=== PATIENT | female | born 1960 | race Caucasian/White ===

== ENCOUNTER 2019-04-11 16:40 | Observation (INO) | payer OTHER ==
[~2019-04-11] VITALS: Ht 170.2 cm; Wt 63.5 kg
[2019-04-11] MEDS ORDERED: DIPHENHYDRAMINE HCL INJ 50 MG/ML VIAL IV ONE (17:00)
[2019-04-11 17:38] LABS: BASOPHILS # (AUTO) 0.1 (0.0-0.1); BASOPHILS % 0.8 % (0.0-1.0); EOSINOPHILS # (AUTO) 0.3 (0.0-0.4); EOSINOPHILS % 3.9 % (0.0-6.0); HEMATOCRIT 29.3 % (34.2-44.1); HEMOGLOBIN 9.2 g/dL (12.0-16.0); LYMPHOCYTES # (AUTO) 1.5 (1.0-3.2); LYMPHOCYTES % 17.1 % (18.0-39.1); MEAN CORPUSCULAR HEMOGLOBIN 25.7 pg (28-32); MEAN CORPUSCULAR HGB CONC 31.4 g/dL (31-35); MEAN CORPUSCULAR VOLUME 81.8 fL (81-99); MONOCYTES # (AUTO) 0.9 (0.2-0.8); MONOCYTES % 10.5 % (4.4-11.3); NEUTROPHILS # (AUTO) 5.7 (2.1-6.9); NEUTROPHILS % 67.3 % (38.7-80.0); PLATELET COUNT 377 x10e3/uL (140-360); RED BLOOD COUNT 3.58 x10e6/uL (3.6-5.1); RED CELL DISTRIBUTION WIDTH 15.1 % (11.7-14.4)
--- NOTE | 2019-04-11 17:39 | Diagnostic Imaging Report ---
History:Dizziness Comparison studies: None Technique: Axial images were obtained from the skull base to the vertex. Coronal and sagittal images reconstructed from the axial data. Dose modulation, iterative reconstruction, and/or weight based adjustment of the mA/kV was utilized to reduce the radiation dose to as low as reasonably achievable. Intravenous contrast: None Findings: Scalp/skull: No abnormalities. Extra-axial spaces: No masses. No fluid collections. Brain sulci: Mildly prominent. Ventricles: Mild compensatory dilatation. No hydrocephalus. Parenchyma: Describe hypodensities in the supratentorial white matter are small vessel ischemic changes. No masses, hemorrhage, acute or chronic cortical vascular insults. Sellar/suprasellar region: No abnormalities. Craniocervical junction: Patent foramen magnum. No Chiari one malformation. Incidental findings: Subtle atherosclerotic calcifications in the carotid siphons . Impression: No intracranial abnormalities. Signed by: Dr. Aubrey Strong M.D. on 04/11/2019 5:36 PM
[2019-04-11 17:52] LABS: ALANINE AMINOTRANSFERASE 17 IU/L (0-55); ALBUMIN 3.6 g/dL (3.5-5.0); ALBUMIN/GLOBULIN RATIO 1.1 (0.8-2.0); ALKALINE PHOSPHATASE 93 IU/L (40-150); ANION GAP 17.5 mmol/L (8-16); BLOOD UREA NITROGEN 19 mg/dL (7-26); BUN/CREATININE RATIO 12 (6-25); CARBON DIOXIDE 21 mmol/L (22-29); CHLORIDE 105 mmol/L (98-107); CREATINE KINASE 766 IU/L (29-168); CREATININE, SERUM 1.63 mg/dL (0.57-1.11); EST GLOMERULAR FILTRATION RATE 32 ML/MIN (60-); GLUCOSE 99 mg/dL (74-118); POTASSIUM 3.5 mmol/L (3.5-5.1); SODIUM 140 mmol/L (136-145)
[2019-04-11 17:53] LABS: BILIRUBIN,URINE NEGATIVE (NEGATIVE); CLARITY,URINE SL CLOUDY (CLEAR); COLOR,URINE YELLOW (YELLOW); KETONES,URINE TRACE (NEGATIVE); LEUKOCYTE ESTERASE ,URINE NEGATIVE (NEGATIVE); NITRITE,URINE NEGATIVE (NEGATIVE); PROTEIN,URINE DIPSTICK NEGATIVE (NEGATIVE); URINE UROBILINOGEN 0.2 mg/dL (0.2 - 1)
[2019-04-11 18:12] LABS: THYROID STIMULATING HORMONE 0.277 uIU/mL (0.350-4.940)
[2019-04-11 18:26] LABS: AMPHETAMINES SCREEN,URINE POSITIVE (NEGATIVE); PHENCYCLIDINE SCREEN,URINE NEGATIVE (NEGATIVE)
[2019-04-11 18:28] LABS: BENZODIAZEPINES SCREEN,URINE POSITIVE (NEGATIVE)
[2019-04-11] MEDS ORDERED: SODIUM CHLORIDE 0.9% 1000ML 1,000 ML ONE ×3 (18:46→19:10)
[2019-04-11] MEDS ORDERED: ZIPRASIDONE 20 MG VIAL IM STA (19:02)
[2019-04-11 19:09] LABS: BACTERIA,URINE MODERATE /HPF; EPITHELIAL CELLS,URINE MODERATE /LPF; RBC,URINE 0-5 /HPF (0-5); WBC,URINE (MAN) 0-5 /HPF (0-5)
[2019-04-11] MEDS ORDERED: SODIUM CHLORIDE 0.9% 1000ML 1,000 ML IV SCH (19:15)
[2019-04-11] MEDS ORDERED: SODIUM CHLORIDE 0.9% 1000ML 3,000 ML IV SCH (19:15)
[2019-04-11] MEDS ORDERED: MULTIVITAMINS- 12 INJECTION 10 ML, FOLIC ACID MDV 5 MG, THIAMINE HCL INJ 100 MG in SODI... IV ONE (20:00)
[2019-04-11] MEDS ORDERED: ONDANSETRON HCL INJ 2MG/ML 2ML 2 MG/ML VIAL IV PRN (20:00)
[2019-04-11] MEDS ORDERED: HALOPERIDOL LACTATE 5 MG/ML VIAL IM PRN (20:00)
--- OUTSIDE RECORDS SUMMARY | 2019-04-11 20:01 | XMS REPORT ---
Author Organization Unknown Address [address] [place] [address] Phone [phone] Care Team Providers Care Household Chores Name Role Phone LONNIE HARDY MD 447 [phone] LOS ARANA MD 005 [phone] Allergies Code Code System Name Reaction Severity Status Onset NKDA Medications Name Status Start Date Stop Date acetaminophen 300 mg-codeine 30 mg tablet Completed 05/02/2017 Advair Diskus 500 mcg-50 mcg/dose powder for inhalation Active Not available amlodipine 10 mg tablet Active Not available aspirin 1 tab po qd with food Active Not available atorvastatin 10 mg tablet TAKE 1 TABLET(S) EVERY DAY BY ORAL ROUTE FOR 90 DAYS. Active Not available azithromycin 250 mg tablet Completed 01/07/2018 bupropion HCl SR 150 mg tablet,12 hr sustained-release TAKE 1 TABLET BY MOUTH TWICE A DAY Completed 01/07/2018 clonazepam 0.5 mg tablet Completed 05/02/2017 clonidine 0.1 mg/24 hr weekly transdermal patch Completed 08/06/2017 clonidine HCl 0.1 mg tablet Active Not available Combivent Respimat 20 mcg-100 mcg/actuation solution for inhalation Active Not available diclofenac 3 % topical gel Active Not available duloxetine 30 mg capsule,delayed release Active Not available fluconazole 150 mg tablet Completed 09/17/2017 lidocaine 5 % topical ointment Active Not available lisinopril 10 mg tablet Active Not available meloxicam 15 mg tablet Active Not available metformin 500 mg tablet Active Not available methylprednisolone 4 mg tablets in a dose pack Active Not available NTS Step 1 21 mg/24 hr transdermal 24 hour patch Completed 08/06/2017 omeprazole 20 mg capsule,delayed release Active Not available OneTouch Ultra Blue Test Strip Active Not available OneTouch Ultra2 kit Active Not available penicillin V potassium 500 mg tablet Completed 05/02/2017 Prescription - Prior Authorization Request Completed 05/26/2017 Symbicort 160 mcg-4.5 mcg/actuation HFA aerosol inhaler inhale 2 puff(s) twice a day by inhalation route. Completed 05/26/2017 Vitamin D2 50,000 unit capsule Completed 12/24/2017 Problems Name Status Onset Date Source Tobacco Dependence Syndrome Active 02/07/2017 History of Cocaine Abuse Active 02/07/2017 Generalized Anxiety Disorder Active 03/05/2017 Chronic Obstructive Lung Disease Active 05/02/2017 Major Depressive Disorder Active 09/17/2017 Drug Abuse in Remission Active 09/17/2017 Hyperlipidemia Active 12/24/2017 Benign Essential Hypertension Active 12/24/2017 Type 2 Diabetes Mellitus with Multiple Complications Active 01/07/2018 Procedures Date Name Performed by 10/06/1989 Caesarean Section Information not available Delivery Information not available Back Surgery Information not available 01/24/2017 XR, Hip, Unilateral [facility] [address] [place] [id number] (Work Place) 01/24/2017 XR, Femur [facility] [address] [place] [phone] (Work Place) 01/24/2017 XR, Wrist, 2 View [facility] [address] [place] [phone] (Work Place) 01/24/2017 XR, Hand [facility] [address] [place] [address] (Work Place) 06/19/2017 Electrocardiogram [facility] [address] [place] [phone] (Work Place) 04/09/2017 Mammogram, Screening Information not available 09/17/2017 US, Duplex, Abdomen, Complete Information not available 12/24/2017 Electrocardiogram [facility] [address] [place] [address] [phone] (Work Place) 12/24/2017 XR, Chest, 2 View [facility] [address] [place] [phone] (Work Place) 01/13/2018 US, Abdomen [facility] [address] [place] [phone] (Work Place) Lab Results Date Name Specimen Result Interpretation Description Value Range Status Address 01/13/2018 Urinalysis, Dipstick Color Color yellow [facility]: [address], [place] Color Appearance clear [facility]: [address] [place] [address], [place] Color Glucose negative [facility]: [address] [place] [address], [place] Color Bilirubin negative [facility]: [address] [place] [address], [place] Color Ketones negative [facility]: [address] [place] [address], [place] Color Specific [place] 1.010 [facility]: [address] [place] [address], [place] Color Blood negative [facility]: [address] [place] [address], [place] Color PH 5.5 [facility]: [address] [place] [address], [place] Color Protein negative [facility]: [address] [place] [address], [place] Color Urobilinogen 0.2 [facility]: [address] [place] [address], [place] Color Nitrites negative [facility]: [address] [place] [address], [place] Color Leukocytes negative [facility]: [address] 01/05/2018 Electrocardiogram Rate & Rhythm 97/min , rrr [facility]: [address] Qrs [facility]: [address] [place] [address], [place] CT Interval [facility]: [address] [place] [address], [place] QRS Duration [facility]: [address] QT Interval [facility]: [address] 12/24/2017 CBC W/ Auto Diff Wbc 8.72 x10*3/L 3.98-10.04 x10*3/L Final [facility]: [address] Rbc 4.97 10*12/L 3.93-5.22 10*12/L Final [facility]: [address] Hemoglobin 15.20 g/dL 11.20-15.70 g/dL Final [facility]: [address] Hematocrit 44.4 % 34.1-44.9 % Final [facility]: [address] Mcv 89.3 fL 80.0-100.0 fL Final [facility]: [address] [place] Mch 30.6 pg 25.6-32.2 pg Final [facility]: [address] [place] Mchc 34.2 g/dL 32.2-35.5 g/dL Final [facility]: [address] [place] RDW-SD 40.9 fL 36.4-46.3 fL Final [facility]: [address] [place] Platelet Count 271.0 k/uL 182.0-369.0 k/uL Final [facility]: [address] [place] Mpv 10.5 fL 7.5-11.5 fL Final [facility]: [address] [place] Neut% 68.2 % 34.0-71.1 % Final [facility]: [address] [place] Lymph% 21.8 % 19.3-51.7 % Final [facility]: [address] [place] Mon% 6.7 % 4.7-12.5 % Final [facility]: [address] [place] Eos% 2.5 % 0.7-5.8 % Final [facility]: [address] [place] Baso% 0.8 % 0.1-1.2 % Final [facility]: [address] [place] Neut# 6.0 x10*3/L 1.6-6.1 x10*3/L Final [facility]: [address] [place] Lymph# 1.9 x10*3/L 1.2-3.7 x10*3/L Final [facility]: [address] [place] Mon# 0.6 x10*3/L 0.2-0.9 x10*3/L Final [facility]: [address] [place] Eos# 0.22 x10*3/L 0.04-0.36 x10*3/L Final [facility]: [address] [place] Baso# 0.07 x10*3/L 0.01-0.08 x10*3/L Final [facility]: [address] [place] 12/24/2017 CMP, Serum or Plasma Alt 12 U/L 0-55 U/L Final [facility]: [address] Ast 16 U/L 5-34 U/L Final [facility]: [address] Nazario [address] [place] [address] Bun 17.9 mg/dL 9.8-20.1 mg/dL Final [facility]: [address] [place] [address], [place] Alk Phos 122 unit/L 40-150 unit/L Final [facility]: [address] Nazario [address] [place] [address] High Glucose 128 mg/dL 70-99 mg/dL Final [facility]: [address] Albumin 3.7 g/dL 3.5-5.0 g/dL Final [facility]: [address] Creatinine 0.77 mg/dL 0.57-1.11 mg/dL Final [facility]: [address] eGFR Non- >60 mL/min/1.73m2 >60 mL/min/1.73m2 Final [facility]: [address] Total Bilirubin 0.3 mg/dL 0.2-1.2 mg/dL Final [facility]: [address] eGFR - >60 mL/min/1.73m2 >60 mL/min/1.73m2 Final [facility]: [address] Sodium 137 mEq/L 136-145 mEq/L Final [facility]: [address] Potassium 4.6 mEq/L 3.5-5.1 mEq/L Final [facility]: [address] Chloride 103 mmol/L 98-107 mmol/L Final [facility]: [address] Total Protein 7.4 g/dL 6.4-8.3 g/dL Final [facility]: [address] Calcium 9.7 mg/dL 8.4-10.2 mg/dL Final [facility]: [address] Co2 25.2 mmol/L 22.0-29.0 mmol/L Final [facility]: [address] Anion Gap 9 calc Final [facility]: [address] 12/24/2017 Lipid Panel, Serum Hdl 55 mg/dL 40-60 mg/dL Final [facility]: [address] Triglyceride 116 mg/dL 0-149 mg/dL Final [facility]: [address] VLDL Calc. 23 mg/dL Final [facility]: [address] cholesterol/HDL Ratio 4.5 mg/dL Final [facility]: [address] High non-HDL Cholesterol Calc. 192 mg/dL 0-160 mg/dL Final [facility]: [address] High Cholesterol 247 mg/dL 0-199 mg/dL Final [facility]: [address] High LDL Calc. 169 mg/dL 0-130 mg/dL Final [facility]: [address] 12/24/2017 Vitamin D, 25-Hydroxy, Total, Serum Vitamin D 25OH 31.0 NG/mL 30.0-96.0 NG/mL Final [facility]: [address] 12/24/2017 HbA1C (Hemoglobin a1C), Blood High A1C W/eag 6.9 % 1.0-5.7 % Final [facility]: [address] Average Blood Glucose 151 mg/dL Final [facility]: [address] 12/24/2017 Spirometry Spirometry: PRE [facility]: [address] Fev1: 80% [facility]: [address] 10/22/2017 Fecal Occult Blood, Stool Fecal Globin (Medicare) by Immunochemistry not detected Final [facility]: [address] 05/26/2017 CBC W/ Auto Diff Wbc 7.99 x10*3/L 3.98-10.04 x10*3/L Final [facility]: [address] [place] Rbc 4.72 10*12/L 3.93-5.22 10*12/L Final [facility]: [address] [place] Hemoglobin 14.80 g/dL 11.20-15.70 g/dL Final [facility]: [address] [place] Hematocrit 44.6 % 34.1-44.9 % Final [facility]: [address] [place] Mcv 94.5 fL 80.0-100.0 fL Final [facility]: [address] [place] Mch 31.4 pg 25.6-32.2 pg Final [facility]: [address] [place] Mchc 33.2 g/dL 32.2-35.5 g/dL Final [facility]: [address] [place] RDW-SD 43.0 fL 36.4-46.3 fL Final [facility] [address] [facility] 288.0 k/uL 182.0-369.0 k/uL Final [facility]: [address] Gu[address] [place] Mpv 10.8 fL 7.5-11.5 fL Final [facility]: [address] [place] Neut% 50.8 % 34.0-71.1 % Final [facility]: [address] [place] Lymph% 35.7 % 19.3-51.7 % Final [facility]: [address] [place] Mon% 9.0 % 4.7-12.5 % Final [facility]: [address] [place] Eos% 3.9 % 0.7-5.8 % Final [facility]: [address] [place] Baso% 0.6 % 0.1-1.2 % Final [facility]: [address] [place] Neut# 4.1 x10*3/L 1.6-6.1 x10*3/L Final [facility]: [address] [place] Lymph# 2.9 x10*3/L 1.2-3.7 x10*3/L Final [facility]: [address] Nazario [facility], [place] Mon# 0.7 x10*3/L 0.2-0.9 x10*3/L Final [facility]: [address] [place] Eos# 0.31 x10*3/L 0.04-0.36 x10*3/L Final [facility]: [address] Nazario [facility], [place] Baso# 0.05 x10*3/L 0.01-0.08 x10*3/L Final [facility]: [address] Nazario [address] [place] [address] 05/26/2017 CMP, Serum or Plasma Alt 6 U/L 0-55 U/L Final [facility]: [address] Ast 10 U/L 5-34 U/L Final [facility]: [address] High Bun 25.2 mg/dL 9.8-20.1 mg/dL Final [facility]: [address] Alk Phos 118 unit/L 40-150 unit/L Final [facility]: [address] High Glucose 103 mg/dL 70-99 mg/dL Final [facility]: [address] Low Albumin 3.4 g/dL 3.5-5.0 g/dL Final [facility]: [address] Creatinine 0.79 mg/dL 0.57-1.11 mg/dL Final [facility]: [address] eGFR Non- >60 mL/min/1.73m2 >60 mL/min/1.73m2 Final [facility]: [address] Total Bilirubin 0.2 mg/dL 0.2-1.2 mg/dL Final [facility]: [address] eGFR - >60 mL/min/1.73m2 >60 mL/min/1.73m2 Final [facility]: [address] Sodium 138 mEq/L 136-145 mEq/L Final [facility]: [address] Potassium 4.5 mEq/L 3.5-5.1 mEq/L Final [facility]: [address] Chloride 107 mmol/L 98-107 mmol/L Final [facility]: [address] Total Protein 6.6 g/dL 6.4-8.3 g/dL Final [facility]: [address] Calcium 9.1 mg/dL 8.4-10.2 mg/dL Final [facility]: [address] Co2 22.2 mmol/L 22.0-29.0 mmol/L Final [facility]: [address] Anion Gap 9 calc Final [facility]: [address] 05/26/2017 Lipid Panel, Serum Hdl 46 mg/dL 40-60 mg/dL Final [facility]: [address] High Triglyceride 152 mg/dL 0-149 mg/dL Final [facility]: [address] VLDL Calc. 30 mg/dL Final [facility]: [address] cholesterol/HDL Ratio 6 mg/dL Final [facility]: [address] High non-HDL Cholesterol Calc. 212 mg/dL 0-160 mg/dL Final [facility]: [address] High Cholesterol 258 mg/dL 0-199 mg/dL Final [facility]: [address] High LDL Calc. 182 mg/dL 0-130 mg/dL Final [facility]: [address] [place] [address], [place] 05/26/2017 T3, Free, Serum or Plasma T3 Free 2.39 pg/mL 1.71-3.71 pg/mL Final [facility]: [address] [place] [address], [place] 05/26/2017 T4, Free, Serum T4 Free 0.97 NG/dL 0.70-1.48 NG/dL Final [facility]: [address] 05/26/2017 TSH, Serum or Plasma Tsh 1.618 uIU/mL 0.350-4.940 uIU/mL Final [facility]: [address] [place] [address], [place] 05/26/2017 Vitamin D, 25-Hydroxy, Total, Serum Low Vitamin D 25OH 25.9 NG/mL 30.0-96.0 NG/mL Final [facility]: [address] [place] [address], [place] 05/26/2017 HbA1C (Hemoglobin a1C), Blood High A1C W/eag 6.3 % 1.0-5.7 % Final [facility]: [address] [place] [address], [place] Average Blood Glucose 134 mg/dL Final [facility]: [address] [place] [address], [place] 05/26/2017 H Pylori Urea Breath Test, Co2 Infrared Normal Helicobacter Pylori, Urea Breath Test not detected not detected Final [facility]: [address] Urinalysis, Dipstick Color Color light yellow [facility]: [address] Color Appearance clear [facility]: [address] Color Glucose negative [facility]: [address] Color Bilirubin negative [facility]: [address] Color Ketones negative [facility]: [address] Color Specific [place] 1.005 [facility]: [address] Color Blood negative [facility]: [address] Color PH 5.0 [facility]: [address] Color Protein negative [facility]: [address] Color Urobilinogen 0.2 [facility]: [address] Color Nitrites negative [facility]: [address] Color Leukocytes negative [facility]: [address] Electrocardiogram Rate & Rhythm tachycardia [facility]: [address] Qrs [facility]: [address] Interval [facility]: [address] QRS Duration [facility]: [address] [place] [address], [place] QT Interval [facility]: [address] [place] [address], [place] Urinalysis, Dipstick Color Color light yellow [facility]: [address] [place] [address], [place] Color Appearance clear [facility]: [address] [place] [address], [place] Color Glucose negative [facility]: [address] [place] [address], [place] Color Bilirubin negative [facility]: [address] [place] [address], [place] Color Ketones negative [facility]: [address] [place] [address], [place] Color Specific [place] 1.015 [facility]: [address] [place] [address], [place] Color Blood negative [facility]: [address] [place] [address], [place] Color PH 6.0 [facility]: [address] [place] [address], [place] Color Protein negative [facility]: [address] [place] [address], [place] Color Urobilinogen 0.2 [facility]: [address] [place] [address], [place] Color Nitrites negative [facility]: [address] [place] [address], [place] Color Leukocytes negative [facility]: [address] [place] [address], [place] Past Encounters 01/13/2018 Abnormal Feces; Low Back Pain; Type 2 Diabetes Mellitus with Multiple Complications; Tobacco Dependence Syndrome Dannie Ramírez MD: [address], [address] [address], Ph. 01/07/2018 Benign Essential Hypertension; Type 2 Diabetes Mellitus with Multiple Complications; Paresthesia of Upper Limb; Mixed Hyperlipidemia; Screening for Malignant Neoplasm of Colon Dannie Ramírez MD: [address], [facility] [address] [address], Ph. 12/24/2017 Generalized Anxiety Disorder; Benign Essential Hypertension; Acute Exacerbation of Chronic Obstructive Airways Disease; Impaired Fasting Glycaemia; Steatosis of Liver; Vitamin D Deficiency; Mixed Hyperlipidemia; Drug Abuse in Remission; Malignant Hypertension Dannie Ramírez MD: [address] [facility], [address] [address], Ph. 09/17/2017 Major Depressive Disorder; Generalized Anxiety Disorder; Elevated Blood-pressure Reading without Diagnosis of Hypertension; Abdominal Pain; Tobacco Dependence Syndrome; Drug Abuse in Remission; Screening for Malignant Neoplasm of Colon; Depression Screening; Immunization Refused Hakan Ridley Jr, MD: [address], [facility] [address] [address], Ph. 08/06/2017 Upper Respiratory Infection; Acute Otitis Media; Osteoarthritis; Immunization Hakan Ridley Jr, MD: [address], [facility] [address], [place] [address], Ph. 06/19/2017 Mixed Hyperlipidemia; Impaired Glucose Tolerance; Menopausal Flushing; Tachycardia; Generalized Anxiety Disorder; Vitamin D Deficiency; Body Mass Index 25-29 - Overweight Hakan Ridley Jr, MD: [address], [address] [address], Ph. 05/26/2017 Adult Health Examination; Gastroesophageal Reflux Disease without Esophagitis; Tobacco Dependence Syndrome; Menopausal Symptom; Screening for Malignant Neoplasm of Colon Hakan Ridley Jr, MD: [address], [facility] [address] [address], Ph. 05/02/2017 Upper Respiratory Infection; Chronic Obstructive Lung Disease; Tobacco Dependence Syndrome Hakan Ridley Jr, MD: [address], [address] [address], Ph. 02/07/2017 Menopausal Symptom; Tobacco Dependence Syndrome Hakan Ridley Jr, MD: [address] [facility] [address] [address], Ph. 01/24/2017 Osteoarthritis; Pain in Wrist; Hip Pain; Generalized Anxiety Disorder; Tobacco Dependence Syndrome; History of Cocaine Abuse; Cannabis Abuse Hakan Ridley Jr, MD: [address] [place] [address], [place] [address], Ph. Social History Smoking Status Heavy Tobacco Smoker (1 PPD) Vaccine List None recorded. Plan of Care Reminders Provider Appointments None recorded. Lab None recorded. Referral None recorded. Procedures None recorded. Surgeries None recorded. Imaging None recorded. 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 Height Weight BMI Blood Pressure 5 ft 7 in 176 lbs 27.6 kg/m2 (1) 122/88 mm[Hg] (2) 110/82 mm[Hg] (3) 108/80 mm[Hg] 01/07/2018 02:45PM Est Patient Height Weight BMI Blood Pressure 5 ft 7 in 177 lbs 27.7 kg/m2 138/84 mm[Hg] 12/24/2017 02:45PM Est Patient Height Weight BMI Blood Pressure 5 ft 7 in 178 lbs 27.9 kg/m2 (1) 210/114 mm[Hg] (2) 150/100 mm[Hg] 09/17/2017 02:00PM Est Patient Height Weight BMI Blood Pressure 5 ft 7 in 174 lbs 27.3 kg/m2 152/94 mm[Hg] 08/06/2017 09:15AM Est Patient Height Weight BMI Blood Pressure 5 ft 7 in 165.2 lbs 25.9 kg/m2 124/80 mm[Hg] 06/19/2017 02:45PM Est Patient Height Weight BMI Blood Pressure 5 ft 7 in 161.8 lbs 25.3 kg/m2 (1) 150/84 mm[Hg] (2) 132/82 mm[Hg] 05/26/2017 08:45AM Est Patient Height Weight BMI Blood Pressure 5 ft 7 in 159.8 lbs 25 kg/m2 110/76 mm[Hg] 05/02/2017 04:00PM Est Patient Height Weight BMI Blood Pressure 5 ft 7 in 161 lbs 25.2 kg/m2 110/80 mm[Hg] 02/07/2017 10:00AM Est Patient Height Weight BMI Blood Pressure 5 ft 7 in 154.6 lbs 24.2 kg/m2 130/82 mm[Hg] 01/24/2017 10:00AM New Patient Height Weight BMI Blood Pressure 5 ft 7 in 170 lbs 26.6 kg/m2 120/76 mm[Hg]
--- OUTSIDE RECORDS SUMMARY | 2019-04-11 20:01 | XMS REPORT ---
Author Author [facility] Address Unknown Phone Unavailable Care Team Providers Care Underliner Name Role Phone Augustine MAKI Unavailable Unavailable Problems This patient has no known problems. Allergies, Adverse Reactions, Alerts This patient has no known allergies or adverse reactions. Medications This patient has no known medications. Results Test Description Test Time Test Comments Text Results Atomic Results Result Comments CT BRAIN WO 2019-04-11 17:35:00 [place] [address] Patient Name: MARY ARROYO MR #: [id number] : 1960 Age/Sex: 58/F Req #: [id number] Adm Physician: Ordered by: NAMRATA MAKI MD Report #: [id number] Location: ER Room/Bed: Procedure: [id number] CT/CT BRAIN WO Exam Date: 04/11/19 Exam Time: 1720 REPORT STATUS: Signed History:Dizziness Comparison studies: None Technique: Axial images were obtained from the skull base to the vertex. Coronal and sagittal images reconstructed from the axial data. Dose modulation, iterative reconstruction, and/or weight based adjustment of the mA/kV was utilized to reduce the radiation dose to as low as reasonably achievable. Intravenous contrast: None Findings: Scalp/skull: No abnormalities. Extra-axial spaces: No masses. No fluid collections. Brain sulci: Mildly prominent. Ventricles: Mild compensatory dilatation. No hydrocephalus. Parenchyma: Describe hypodensities in the supraten torial white matter are small vessel ischemic changes. No masses, hemorrhage, acute or chronic cortical vascular insults. Sellar/suprasellar region: No abnormalities. Craniocervical junction: Patent foramen magnum. No Chiari one malformation. Incidental findings: Subtle atherosclerotic calcifications in the carotid siphons . Impression: No intracranial abnormalities. Signed by: Dr. Aubrey Strong M.D. on 04/11/2019 5:36 PM Dictated By: AUBREY STRONG MD, MD [id number] Transcribed By: KRISTIAN on 04/11/19 1737 COPY TO: NAMRATA MAKI MD
--- NOTE | 2019-04-11 22:05 | NUR ---
Pt received from ER. Pt sleeping post Geodon given in ER. Pt on 2LNC. All safety measures ensured, bed alarm on, and pt call [place].
[2019-04-11 22:10] VITALS: BP 109/57
[2019-04-12] VITALS (8 sets, daily range): BP systolic 106–118; BP diastolic 55–66
[2019-04-12] MEDS: SODIUM CHLORIDE 0.9% 1000ML 1,000 ML IV SCH ×6 (00:11→21:00)
[2019-04-12] MEDS: LORAZEPAM INJ 2 MG/ML VIAL IV SCH ×4 (01:02→18:00)
[2019-04-12 06:04] LABS: ALANINE AMINOTRANSFERASE 15 IU/L (0-55); ALBUMIN 2.7 g/dL (3.5-5.0); ALKALINE PHOSPHATASE 75 IU/L (40-150); ANION GAP 10.6 mmol/L (8-16); BLOOD UREA NITROGEN 12 mg/dL (7-26); BUN/CREATININE RATIO 14 (6-25); CALCIUM 7.9 mg/dL (8.4-10.2); CARBON DIOXIDE 20 mmol/L (22-29); CHLORIDE 113 mmol/L (98-107); CREATINE KINASE 452 IU/L (29-168); CREATININE, SERUM 0.87 mg/dL (0.57-1.11); EST GLOMERULAR FILTRATION RATE > 60 ML/MIN (60-); GLUCOSE 99 mg/dL (74-118); MAGNESIUM 1.8 MG/DL (1.3-2.1); POTASSIUM 3.6 mmol/L (3.5-5.1); SODIUM 140 mmol/L (136-145)
--- NOTE | 2019-04-12 07:00 | NUR ---
received am report from RN, morning rounds done. pt is sleeping, no s/s of distress. call light within reach, bed in lowest position, side rails up .
[2019-04-12 07:47] LABS: BASOPHILS % 0.5 % (0.0-1.0); EOSINOPHILS # (AUTO) 0.3 (0.0-0.4); EOSINOPHILS % 4.6 % (0.0-6.0); HEMATOCRIT 29.2 % (34.2-44.1); HEMOGLOBIN 8.8 g/dL (12.0-16.0); LYMPHOCYTES # (AUTO) 0.9 (1.0-3.2); LYMPHOCYTES % 13.9 % (18.0-39.1); MEAN CORPUSCULAR HEMOGLOBIN 25.7 pg (28-32); MEAN CORPUSCULAR HGB CONC 30.1 g/dL (31-35); MEAN CORPUSCULAR VOLUME 85.1 fL (81-99); MONOCYTES # (AUTO) 0.6 (0.2-0.8); MONOCYTES % 9.9 % (4.4-11.3); NEUTROPHILS # (AUTO) 4.4 (2.1-6.9); NEUTROPHILS % 70.6 % (38.7-80.0); PLATELET COUNT 296 x10e3/uL (140-360); RED BLOOD COUNT 3.43 x10e6/uL (3.6-5.1); RED CELL DISTRIBUTION WIDTH 15.5 % (11.7-14.4)
[2019-04-12] MEDS ORDERED: METFORMIN HCL500 MG PO (09:03)
[2019-04-12] MEDS ORDERED: LISINOPRIL10 MG PO (09:03)
[2019-04-12] MEDS ORDERED: GABAPENTIN400 MG PO (09:09)
[2019-04-12] MEDS ORDERED: AMLODIPINE BESY10 MG PO (09:09)
[2019-04-12] MEDS ORDERED: CYCLOBENZAPRINE10 MG PO (09:09)
[2019-04-12] MEDS ORDERED: FENOPROFEN CAL600 MG PO (09:09)
[2019-04-12] MEDS ORDERED: CYMBALTA30 MG PO (09:09)
[2019-04-12] MEDS ORDERED: Diclofenac Sodium PO (09:09)
[2019-04-12] MEDS ORDERED: DOXYCYCLINE HY100 MG PO (09:09)
[2019-04-12] MEDS ORDERED: ADVAIR 250-501 EACH INH (09:11)
[2019-04-12] MEDS ORDERED: OMEPRAZOLE40 MG PO (09:11)
[2019-04-12] MEDS ORDERED: COMBIVENT RESPIM4 GM IH (09:11)
[2019-04-12 14:10] LABS: CREATINE KINASE 332 IU/L (29-168)
--- NOTE | 2019-04-12 18:10 | NUR ---
pt complained of pain at R AC iv site, removed iv and applied pressure dressing. pt tolerated well. there is a patent and asymptomatic iv at the Left AC, ivf are running.
[2019-04-13] VITALS: BP 127/59
--- NOTE | 2019-04-13 01:30 | NUR ---
PT'S IV TO LEFT AC NOTED LEAKING.CATH TIP NOTED INTACT UP ON REMOVAL.DRESSING APPLIED.NEW IV STARTED TO LEFT WRIST 20G.
[2019-04-13 04:00] VITALS: BP 130/67
[2019-04-13] MEDS: LORAZEPAM INJ 2 MG/ML VIAL IV SCH ×3 (06:00→12:00)
--- NOTE | 2019-04-13 07:00 | NUR ---
RECEIVED AM REPORT FROM RN, MORNING ROUNDS DONE. PT IS AWAKE, CALM AND COOPERATIVE LYING IN BED, NO S/S OF DISTRESS. PT IS COMPLAINING THAT THE BUTTONS ON THE CALL LIGHT FOR THE TV IS NOT WORKING. NO OTHER COMPLAINTS AT THIS TIME
--- NOTE | 2019-04-13 07:02 | NUR ---
REPORT GIVEN TO ONCOMING NURSE.WALKING ROUNDS MADE.PT RESTING IN BED WITH NO S/S OF DISTRESS.
[2019-04-13 08:22] VITALS: BP 126/62
[2019-04-13 08:45] VITALS: BP 126/62
[2019-04-13] MEDS ORDERED: ONDANSETRON HCL 4 MG ORAL DISINTEGRATING TAB PO PRN (10:30)
--- NOTE | 2019-04-13 10:30 | NUR ---
DR FATIMA CLEARED PT TO DISCHARGE HOME. PATIENT STATED THAT WILL BE ABLE TO COME PICK HER UP BETWEEN 1 AND 2 PM TODAY.
[2019-04-13 12:14] VITALS: BP 131/72
--- NOTE | 2019-04-14 06:36 | Discharge Summary ---
DISCHARGE DIAGNOSES: 1. Acute psychosis. 2. Multi-drug abuse. 3. Hypertension. HISTORY OF PRESENT ILLNESS AND HOSPITAL COURSE: See hospital chart for full details. The patient is a lady, well known to me, who came with acute delirium and psychosis secondary to multi-drug abuse, where urine drug screen showed cocaine, marijuana, methamphetamines, and amphetamines, where she had acute psychotic episode, where she had to be given Geodon with significant improvement of her symptoms and the patient was given IV fluids and a banana bag where once again after these drugs wore off, the patient was very ashamed, very upset with herself. She says she had a week long where she tried multiple drugs at one time, which caused delirium. She states she will never do it again and she denies any suicide or homicidal ideations. So once the patient was medically stable, she was able to ambulate well and eat well, she was discharged home with continuation of her home medications and follow up with me in 3 days. Please see hospital chart for full details. MD ROXIE Tracy/DOYLE /[id number]
== END 2019-04-13 13:44 | disposition home or self-care (01) ==
LOC: ER 16:40 → ERHOLD 19:57 → MED/SURG 22:00
PROVIDERS: ADMIT Internal Medicine; ATTEND Internal Medicine
DX: F14.121 Cocaine abuse with intoxication with delirium (principal); F15.121 Other stimulant abuse with intoxication delirium; F13.121 Sedative, hypnotic or anxiolytic abuse with intoxication delirium; F17.210 Nicotine dependence, cigarettes, uncomplicated; N18.3 Chronic kidney disease, stage 3 (moderate); I95.9 Hypotension, unspecified; D64.9 Anemia, unspecified; N17.9 Acute kidney failure, unspecified; F12.121 Cannabis abuse with intoxication delirium; I12.9 Hypertensive chronic kidney disease with stage 1 through stage 4 chronic kidney disease, or unspecified chronic kidney disease
CPT/HCPCS: 36415 ×2; 70450; 80053 ×2; 80307; 81001; 82550 ×2; 82553 ×2; 82948; 83735; 84443; 84484 ×2; 85025 ×2; 93005; 99284; G0378 ×3; J1200; J2060; J3411; J3486; J7030 ×2

== ENCOUNTER 2019-08-30 15:12 | Emergency (ER) | payer OTHER ==
[~2019-08-30] VITALS: Ht 170.2 cm; Wt 63.5 kg
[~2019-08-30 15:12] MED LIST: ADVAIR 250-501 EACH INH; AMLODIPINE BESY10 MG PO; COMBIVENT RESPIM4 GM IH; CYCLOBENZAPRINE10 MG PO; CYMBALTA30 MG PO; DOXYCYCLINE HY100 MG PO; Diclofenac Sodium PO; FENOPROFEN CAL600 MG PO; GABAPENTIN400 MG PO; LISINOPRIL10 MG PO; METFORMIN HCL500 MG PO; OMEPRAZOLE40 MG PO
[2019-08-30] MEDS ORDERED: SODIUM CHLORIDE 0.9% 1000ML 1,000 ML IV STA (15:57)
--- NOTE | 2019-08-30 16:39 | Diagnostic Imaging Report ---
EXAMINATION: CHEST SINGLE (PORTABLE) INDICATION: Shortness of breath, dizziness COMPARISON: None FINDINGS: LINES/TUBES:None LUNGS:The lungs are well-inflated. No focal consolidation or pulmonary edema. PLEURA:No pleural effusion or pneumothorax. MEDIASTINUM:The cardiomediastinal silhouette appears normal in size and shape. Atherosclerotic calcifications of the thoracic aorta. BONES/SOFT TISSUES:No acute osseous injury. ABDOMEN:No free air under the diaphragm. IMPRESSION: No focal pneumonia or pulmonary edema. Signed by: Sondra Corral MD on 08/30/2019 4:35 PM
--- NOTE | 2019-08-30 16:54 | Diagnostic Imaging Report ---
CT BRAIN WO HISTORY: Dizziness COMPARISON: Head CT 04/11/2019 Technique: Noncontrast axial scans were obtained from skull base to the vertex. Coronal and sagittal reconstructions obtained from the axial data. One or more of the following dose reduction techniques were used: Automated exposure control, adjustment of the mA and/or kV according to patient size, and/or utilization of iterative reconstruction technique. DISCUSSION: Scalp/Skull: Unremarkable. Brain sulci: Mildly prominent. Ventricles: Compensatory dilatation. Extra-axial spaces: No masses or fluid collections. Carotid siphon calcifications are present. Parenchyma: Minimal bilateral deep white matter hypodensity is likely chronic microvascular ischemic change. Otherwise, no masses, hemorrhage, or large vascular territory acute infarct. Dural sinuses: No abnormal densities. Sellar/Suprasellar region: Intact. Skull base: Intact. Incidental findings: None. IMPRESSION: 1. No acute intracranial abnormalities. 2. Minimal supratentorial chronic microvascular ischemic change. Mild generalized cerebral volume loss. Signed by: Dr. Maurilio Arias M.D. on 08/30/2019 4:51 PM
[2019-08-30 18:15] LABS: BASOPHILS # (AUTO) 0.1 (0.0-0.1); BASOPHILS % 0.6 % (0.0-1.0); EOSINOPHILS # (AUTO) 0.2 (0.0-0.4); EOSINOPHILS % 1.1 % (0.0-6.0); HEMATOCRIT 34.3 % (34.2-44.1); HEMOGLOBIN 9.8 g/dL (12.0-16.0); LYMPHOCYTES # (AUTO) 2.1 (1.0-3.2); LYMPHOCYTES % 15.5 % (18.0-39.1); MEAN CORPUSCULAR HGB CONC 28.6 g/dL (31-35); MEAN CORPUSCULAR VOLUME 73.6 fL (81-99); MONOCYTES # (AUTO) 0.7 (0.2-0.8); MONOCYTES % 4.9 % (4.4-11.3); NEUTROPHILS # (AUTO) 10.5 (2.1-6.9); NEUTROPHILS % 77.5 % (38.7-80.0); PLATELET COUNT 548 x10e3/uL (140-360); RED BLOOD COUNT 4.66 x10e6/uL (3.6-5.1); RED CELL DISTRIBUTION WIDTH 16.5 % (11.7-14.4)
[2019-08-30 18:20] LABS: INR 0.91; PROTHROMBIN TIME 12.7 seconds (11.9-14.5)
[2019-08-30 18:21] LABS: PARTIAL THROMBOPLASTIN TIME 32.7 seconds (23.8-35.5)
[2019-08-30 18:25] LABS: BILIRUBIN,URINE NEGATIVE (NEGATIVE); CLARITY,URINE CLEAR (CLEAR); COLOR,URINE YELLOW (YELLOW); KETONES,URINE NEGATIVE (NEGATIVE); LEUKOCYTE ESTERASE ,URINE LARGE (NEGATIVE); NITRITE,URINE NEGATIVE (NEGATIVE); PROTEIN,URINE DIPSTICK NEGATIVE (NEGATIVE); URINE UROBILINOGEN 0.2 mg/dL (0.2 - 1)
[2019-08-30 18:32] LABS: ALBUMIN 3.8 g/dL (3.5-5.0); ALBUMIN/GLOBULIN RATIO 0.9 (0.8-2.0); ANION GAP 14.4 mmol/L (8-16); CALCIUM 9.7 mg/dL (8.4-10.2); CREATININE, SERUM 1.12 mg/dL (0.57-1.11); POTASSIUM 4.4 mmol/L (3.5-5.1)
[2019-08-30 18:39] LABS: CREATINE KINASE MB 0.5 ng/mL (0-5.0)
[2019-08-30] MEDS ORDERED: CEFTRIAXONE SOD 1 GM/NS 50 ML 50 ML IV ONE (19:00)
[2019-08-30 19:07] LABS: WBC,URINE (MAN) 21-50 /HPF (0-5)
[2019-08-30 19:08] LABS: BACTERIA,URINE FEW /HPF; EPITHELIAL CELLS,URINE FEW /LPF
== END 2019-08-30 19:50 | disposition home or self-care (01) ==
LOC: ER 15:12
DX: R53.1 Weakness (principal); R30.0 Dysuria; R42 Dizziness and giddiness; N30.90 Cystitis, unspecified without hematuria; I10 Essential (primary) hypertension; E11.9 Type 2 diabetes mellitus without complications; J44.9 Chronic obstructive pulmonary disease, unspecified; E78.5 Hyperlipidemia, unspecified; F32.9 Major depressive disorder, single episode, unspecified; F17.210 Nicotine dependence, cigarettes, uncomplicated
CPT/HCPCS: 36415; 70450; 71045; 80053; 81001; 82550; 82553; 84484; 85025; 85610; 85730; 87086; 87186; 87400; 93005; 99284; J0696; J7030

== ENCOUNTER 2020-06-26 19:46 | Emergency (ER) | payer OTHER ==
[~2020-06-26] VITALS: Ht 170.2 cm; Wt 63.5 kg
[2020-06-26] MEDS ORDERED: ALBUTEROL SULF 0.083% NEB SOLN 3 ML NEB NEB STA (19:53)
[2020-06-26] MEDS ORDERED: IPRATROPIUM/ALBUTEROL SULFATE 4 GM INH INH STA (19:53)
[2020-06-26] MEDS ORDERED: METHYLPREDNISOLONE SOD SUCC 125 MG/2ML VIAL IV ONE (20:00)
[2020-06-26] MEDS ORDERED: ALBUTEROL/IPRATROPIUM 3 ML NEB NEB ONE (20:15)
[2020-06-26] MEDS ORDERED: ALBUTEROL SULF 0.083% NEB SOLN 3 ML NEB ONE (20:15)
[2020-06-26] MEDS ORDERED: IPRATROPIUM BROMIDE 0.02% 2.5 ML NEB ONE (20:16)
--- NOTE | 2020-06-26 20:17 | Emergency Department Note ---
History of Present Illnes History of Present Illness Chief Complaint: COVID PUI History of Present Illness This is a 59 year old female Chief Complaint Comment Patient c/o shortness of breath that started a couple of hours ago while she was doing dishes. Patient states she also thinks she passed out from a sitting position. Historian: Patient Arrival Mode: Car [place] Faller Required: No Onset (how long ago): week(s) Location: Lungs Quality: SoB Radiation: Reports non-radiation Severity: severe Onset quality: gradual Duration (how long): day(s) Timing of current episode: constant Progression: worsening Chronicity: recurrent Context: Denies recent illness, Denies recent surgery Relieving factors: none Exacerbating factors: none Associated symptoms: Reports denies other symptoms Treatments prior to arrival: none Past Medical/Family History Physician Review I have reviewed the patient's past medical and family history. Any updates have been documented here. Past Medical History Recent Fever: No Clinical Suspicion of Infectio: No New/Unexplained Change in Ment: No Past Medical History: Hypertension, Diabetes, COPD, Kidney Stones, Anxiety, Depression, Hyperlipedemia, Osteoarthritis Other Medical History: chronic bronchitis emphysema FIBROMYALGIA Past Surgical History: , Back Surgery Other Surgery: UNK Other Last Tetanus: UNK Review of Systems Review of Systems Constitutional: Reports no symptoms EENTM: Reports no symptoms Cardiovascular: Reports no symptoms Respiratory: Reports as per HPI, Reports dyspnea Gastrointestinal: Reports no symptoms Genitourinary: Reports no symptoms Musculoskeletal: Reports no symptoms Integumentary: Reports no symptoms Neurological: Reports no symptoms Psychological: Reports no symptoms Endocrine: Reports no symptoms Hematological/Lymphatic: Reports no symptoms Physical Exam Related Data Allergies: Coded Allergies: No Known Allergies (Unverified , 04/11/19) Triage Vital Signs Vital Signs Date Time Temp Pulse Resp B/P (MAP) Pulse Ox O2 Delivery O2 Flow Rate FiO2 06/26/20 19:54 97.8 102 20 124/92 100 Room Air 06/26/20 20:09 1.0 Vital signs reviewed: Yes Physical Exam CONSTITUTIONAL Constitutional: Present well-developed, Present well-nourished, Present distressed HENT HENT: Present normocephalic, Present atraumatic, Present oropharynx clear/moist, Present nose normal HENT L/R: Present left ext ear normal, Present right ext ear normal EYES Eyes: Reports PERRL, Reports conjunctivae normal NECK Neck: Present ROM normal PULMONARY Pulmonary: Present respiratory distress; Absent effort normal (Increased effort), Absent breath sounds normal (Decreased breaht sounds) CARDIOVASCULAR Cardiovascular: Present regular rhythm, Present heart sounds normal, Present capillary refill normal, Present normal rate GASTROINTESTINAL Abdominal: Present soft, Present nontender, Present bowel sounds normal GENITOURINARY Genitourinary: Present exam deferred SKIN Skin: Present warm, Present dry MUSCULOSKELETAL Musculoskeletal: Present ROM normal NEUROLOGICAL Neurological: Present alert, Present oriented x 3, Present no gross motor or sensory deficits PSYCHOLOGICAL Psychological: Present mood/affect normal, Present judgement normal Results Laboratory Laboratory Laboratory Tests Test 06/26/20 20:02 Lab results reviewed: Yes Imaging Imaging results reviewed: Yes Diagnostics Tests Diagnostic test(s) reviewed: Yes Procedures 12 Lead ECG Interpretation ECG Interpretation : Hardwood Faller: Interpreted by ED physician Date: Jun 26, 2020 Rhythm: sinus rhythm Rate: normal QRS axis: normal ST segments normal: Yes T waves normal: Yes Clinical Impression: non-specific ECG Assessment & Plan Medical Decision Making MDM 59-year-old female presents for increased shortness of breath for the last few days worsening today. She's been taking her inhalers at home but this has not helped much. She continues to smoke approximately half a pack a cereal today. Examination significant for decreased breath sounds diffusely, saturating 100%, mildly tachypneic at 24. Cardio pulmonary workup benign. Given 10mg Albuterol, 1mg Ipratropium [address] shows artifact VS subdural. Discussed Ct res ults wiht patient and she states she did not have any significant head trauma recently and exam shows no signs of outward head injury. Diagnosis favors artifact on CT. She will f/u w/ her PCP and I gave strict return precautions. Rill rx Doxy and prednisone. Patient states agreement to plan and is appropriate for DC. Reassessment Reassessment time: 21:45 Reassessment Symptoms largely resolved Assessment & Plan Final Impression: (1) COPD exacerbation Depart Disposition: HOME, SELF-CARE Last Vital Signs Date Time Temp Pulse Resp B/P (MAP) Pulse Ox O2 Delivery O2 Flow Rate FiO2 06/26/20 20:09 86 22 119/62 98 Nasal Cannula 1.0 06/26/20 19:54 97.8 Home Meds Reported Medications Ipratropium/Albuterol Sulfate (COMBIVENT RESPIMAT INHAL SPRAY) 4 Gm Aer.w.adap, 4 GM IH, INH 04/12/19 Fluticasone/Salmeterol (ADVAIR 250-50 DISKUS) 1 Each Disk.w.dev, INH 04/12/19 Omeprazole (OMEPRAZOLE) 40 Mg Capsule.dr, 20 MG PO DAILY, CAP 04/12/19 Doxycycline Hyclate (DOXYCYCLINE HYCLATE) 100 Mg Capsule, 100 MG PO Q12H for 10 Days, #15 TAB 04/12/19 [Diclofenac Sodium] No Conflict Check, 75 MG PO BID for arthritis 04/12/19 Gabapentin (GABAPENTIN) 400 Mg Capsule, 800 MG PO TID, #30 CAP 04/12/19 Amlodipine Besylate (AMLODIPINE BESYLATE) 10 Mg Tablet, 10 MG PO DAILY, #30 TAB 04/12/19 Duloxetine Hcl (CYMBALTA) 30 Mg Capsule.dr, 30 MG PO DAILY, #30 CAP 04/12/19 Fenoprofen Calcium (FENOPROFEN CALCIUM) 600 Mg Tablet, 200 MG PO BID PRN for MILD PAIN (1-3) 04/12/19 Cyclobenzaprine Hcl (CYCLOBENZAPRINE HCL) 10 Mg Tablet, 10 MG PO TID, TAB 04/12/19 Metformin Hcl (METFORMIN HCL) 500 Mg Tablet, 500 MG PO BIDWM, #60 TAB 04/12/19 Lisinopril (LISINOPRIL) 10 Mg Tablet, 10 MG PO DAILY, #30 TAB 04/12/19 Medications in the ED Methylprednisolone Sodium Succinate 125 mg ONCE ONCE IV ; Start 06/26/20 at 20:00; Stop 06/26/20 at 20:02; Status DC Albuterol Sulfate 3 ml NOW STAT NEB ; Start 06/26/20 at 19:53; Stop 06/26/20 at 20:08; Status DC Albuterol/ Ipratropium 12 ml ONCE ONCE NEB ; Start 06/26/20 at 20:15; Stop 06/26/20 at 20:16 Albuterol Sulfate 12 ml STK-MED ONCE .ROUTE ; Start 06/26/20 at 20:15; Stop 06/26/20 at 20:09; Status DC Ipratropium [place] 2.5 ml STK-MED ONCE .ROUTE ; Start 06/26/20 at 20:16; Stop 06/26/20 at 20:10; Status DC KSENIA ROSS MD Jun 26, 2020 20:17
[2020-06-26 20:21] LABS: BASOPHILS # (AUTO) 0.1 (0.0-0.1); BASOPHILS % 1.1 % (0.0-1.0); EOSINOPHILS # (AUTO) 0.3 (0.0-0.4); EOSINOPHILS % 3.8 % (0.0-6.0); HEMATOCRIT 26.7 % (34.2-44.1); HEMOGLOBIN 7.6 g/dL (12.0-16.0); LYMPHOCYTES # (AUTO) 2.1 (1.0-3.2); LYMPHOCYTES % 28.3 % (18.0-39.1); MEAN CORPUSCULAR HEMOGLOBIN 19.7 pg (28-32); MEAN CORPUSCULAR HGB CONC 28.5 g/dL (31-35); MEAN CORPUSCULAR VOLUME 69.4 fL (81-99); MONOCYTES # (AUTO) 0.7 (0.2-0.8); MONOCYTES % 9.7 % (4.4-11.3); NEUTROPHILS # (AUTO) 4.3 (2.1-6.9); NEUTROPHILS % 56.8 % (38.7-80.0); PLATELET COUNT 481 x10e3/uL (140-360); RED BLOOD COUNT 3.85 x10e6/uL (3.6-5.1); RED CELL DISTRIBUTION WIDTH 17.2 % (11.7-14.4)
[2020-06-26 20:51] LABS: ALANINE AMINOTRANSFERASE 6 IU/L (0-55); ALBUMIN 3.8 g/dL (3.5-5.0); ALBUMIN/GLOBULIN RATIO 1.3 (0.8-2.0); ALKALINE PHOSPHATASE 106 IU/L (40-150); ANION GAP 14.8 mmol/L (8-16); BLOOD UREA NITROGEN 19 mg/dL (7-26); BUN/CREATININE RATIO 24 (6-25); CALCIUM 8.5 mg/dL (8.4-10.2); CARBON DIOXIDE 23 mmol/L (22-29); CHLORIDE 105 mmol/L (98-107); CREATININE, SERUM 0.78 mg/dL (0.57-1.11); EST GLOMERULAR FILTRATION RATE > 60 ML/MIN (60-); GLUCOSE 124 mg/dL (74-118); POTASSIUM 3.8 mmol/L (3.5-5.1); SODIUM 139 mmol/L (136-145)
--- NOTE | 2020-06-26 21:36 | Diagnostic Imaging Report ---
EXAMINATION: CHEST SINGLE (PORTABLE) INDICATION: Shortness of breath. COMPARISON: Chest x-ray on 08/30/2019. FINDINGS: TUBES and LINES: None. LUNGS: Normal lung volumes. Lungs are clear. No consolidations. Bibasilar atelectasis. PLEURA: No pleural effusion or pneumothorax. HEART AND MEDIASTINUM: The cardiomediastinal silhouette is unremarkable. BONES AND SOFT TISSUES: No acute osseous lesion. Soft tissues are unremarkable. UPPER ABDOMEN: No free air under the diaphragm. IMPRESSION: No acute thoracic radiographic abnormality. Bibasilar atelectasis. Signed by: Sandie Wolff MD on 06/26/2020 9:33 PM
--- NOTE | 2020-06-26 21:41 | Diagnostic Imaging Report ---
EXAMINATION: Head CT without contrast. HISTORY:Dizziness, fall. COMPARISON:CT head from 08/30/2019. TECHNIQUE: Multidetector axial images were obtained from the foramen magnum to the vertex without contrast. The images were reconstructed using brain and bone algorithms. Thin section brain images were reformatted into coronal and sagittal planes. Dose modulation, iterative reconstruction, and/or weight based adjustment of the mA/kV was utilized to reduce the radiation dose to as low as reasonably achievable. Intravenous contrast: None IMAGE QUALITY: Suboptimal evaluation due to motion artifacts. FINDINGS: Skull/scalp: No lytic or blastic. lesions. No surgical changes. Parenchyma: Nonspecific bilateral frontoparietal few, scattered supratentorial white matter hypodensity are likely related to small vessel ischemic changes. No acute intraparenchymal hemorrhage, mass or acute major vascular territorial infarct. Arteries: No density suggestive of thrombosis. Atherosclerotic calcification in bilateral carotid siphon. Dural sinuses: No abnormal density suggestive of thrombosis. Ventricles: No hydrocephalus or displacement. Extra-axial spaces: Subtle left frontal subdural hyperdensity that approximately measures 3 mm in maximum thickness (image 10, series 2; image 21, series 401) without significant regional mass effect or midline shift. Inferiorly this extra-axial hyperdensity has a linear configuration probably represents an artifact. Brain volume: Normal for age. Craniocervical junction: No mass, Chiari malformation, or basilar invagination. Sella: No mass. Paranasal/mastoid sinuses: Imaged portions unremarkable. IMPRESSION: 1. Subtle left frontal subdural hyperdensity probably represents an artifact without any given history of direct trauma vs focal subdural hemorrhage. 2. Mild supratentorial white matter microvascular ischemic changes. Findings were discussed with ER physician Dr. Sharif by phone at 9:30 PM on 06/26/2020. Signed by: Dr. Phyllis Melchor M.D. on 06/26/2020 9:38 PM
[2020-06-26 21:53] VITALS: BP 128/72
--- NOTE | 2020-06-26 21:55 | NUR ---
Patient on the phone without respiratory distress noted at this time. RR even and unlabored.
== END 2020-06-26 22:00 | disposition home or self-care (01) ==
LOC: ER 20:06
DX: J44.1 Chronic obstructive pulmonary disease with (acute) exacerbation (principal); R06.02 Shortness of breath; E11.65 Type 2 diabetes mellitus with hyperglycemia; I10 Essential (primary) hypertension; E78.5 Hyperlipidemia, unspecified; M79.7 Fibromyalgia; F17.210 Nicotine dependence, cigarettes, uncomplicated
CPT/HCPCS: 36415; 70450; 71045; 80053; 83880; 84484; 85025; 93005; 94640; 99284; J2930